=== PATIENT | male | born 1990 | race Caucasian/White ===

== ENCOUNTER 2020-02-12 11:09 | Emergency (ER) | payer OTHER, SELFPAY ==
[2020-02-12 11:20] VITALS: BP 143/100; PULSE 73; RESP 17; TEMP 36.3; O2SAT 100
--- NOTE | 2020-02-12 11:35 | ED.ABDPAIN ---
HPI - Abdominal Pain General Chief Complaint: Abdominal Pain Stated Complaint: abd pains/nausea Time Seen by Provider: 02/12/20 11:21 Source: patient Mode of arrival: ambulatory Limitations: no limitations History of Present Illness HPI narrative: Patient is a 30-year-old male who presents with acute onset of loose stools with nausea but was able to not vomit patient notes generalized cramping and pain to the abdomen with chills fatigue and weakness patient denies similar occurrence or other complaints has not taken anything for his symptoms Related Data Allergies Allergy/AdvReac Type Severity Reaction Status Date / Time Sulfa (Sulfonamide Allergy Unknown Unknown Verified 02/12/20 11:25 Antibiotics) montelukast AdvReac Intermediate anger Verified 02/12/20 11:25 control Review of Systems Review of Systems: All systems reviewed & are unremarkable except as noted in HPI and below PMFSH Past Medical History Medical History Generalized anxiety disorder with panic attacks Raynaud phenomenon RLS (restless legs syndrome) Vasomotor rhinitis Surgical History Surgical History H/O arthroscopy of shoulder (~2012) History of cholecystectomy (~2013) Social History Social History Smoking status: Never smoker Alcohol intake: current Gender identity (if verbalized by the patient): Male Exam Narrative: Exam Narrative: GENERAL: Well-appearing, well-nourished, and in no acute distress. HEAD: Normocephalic, atraumatic. EYES: PERRLA and EOMI. ENT: Nares clear, no rhinorrhea or epistaxis. Mucous membranes moist. CHEST: Clear to auscultation. No respiratory distress. No wheezes rales or rhonchi HEART: Regular rate and rhythm. No murmur heard. Normal peripheral pulses. ABDOMEN: Soft, generalized tenderness of the abdomen, nondistended EXTREMITIES: Normal range of motion. No edema. SKIN: Warm, dry, no rash. NEURO: No focal deficits. Alert and oriented x3. PSYCH: Normal mood and affect. Course Course Emergency Course: Patient in the room at this time in no distress had marked improvement with medications tolerating p.o. intake notes only mild discomfort in the left lower quadrant with remainder of abdomen nontender on exam patient felt appropriate for outpatient reevaluation provided with reasons to return and felt appropriate for outpatient reevaluation Vital Signs Vital signs: Vital Signs Temperature 97.4 F L 02/12/20 11:20 Pulse Rate 73 02/12/20 11:20 Respiratory Rate 17 02/12/20 11:20 Blood Pressure 143/100 H 02/12/20 11:20 Pulse Oximetry 100 02/12/20 11:20 Temperature 97.4 F L 02/12/20 11:20 Pulse Rate 88 02/12/20 13:03 Respiratory Rate 18 02/12/20 13:03 Blood Pressure 136/84 02/12/20 13:03 Pulse Oximetry 98 02/12/20 13:03 MDM - Abdominal Pain MDM Narrative Medical decision making narrative: Patient was nausea diarrhea with improvement in the emergency department felt appropriate for outpatient reevaluation given reasons to return and agrees to do so if symptoms worsen had marked improvement with medication Differential Diagnosis Differential diagnosis: Likely abdominal pain, calculus of kidney, constipation, diverticulitis, gastroenteritis and small bowel obstruction Lab Data Result diagrams: 02/12/20 11:29 02/12/20 11:29 Labs: Lab Results 02/12/20 02/12/20 02/12/20 Range/Units 11:29 11:29 11:29 WBC 7.3 (4.5-10.0) K/mm3 RBC 6.21 H (4.6-6.20) M/mm3 Hgb 19.0 H (14.0-18.0) g/dL Hct 54.9 H (42.0-52.0) % MCV 88.4 (80-100) fl MCH 30.6 (26-34) pg MCHC 34.6 (32-36) g/dl RDW 12.5 (11.5-14.5) % Plt Count 214 (150-375) k/mm3 MPV 10.7 H (7.4-10.4) fl Immature Gran % (Auto) 0.3 (0-0.5) % Neut % (Auto) 63.5 (45.5-73.1) %
[2020-02-12 11:38] LABS: Basophils Percent Auto 0.4 % (0.2-1.2); Eosinophils Absolute Auto 0.1 K/mm3 (0-0.3); Eosinophils Percent Auto 1.9 % (0-4.4); Hematocrit 54.9 % (42.0-52.0); Immature Granulocyte Absolute 0.02 K/mm3 (0.00-0.031); Immature Granulocyte Percent A 0.3 % (0-0.5); Lymphocytes Absolute Auto 2.02 K/mm3 (0.9-3.2); Lymphocytes Percent Auto 27.8 % (18.3-44.2); Mean Corpuscular HGB Conc 34.6 g/dl (32-36); Mean Corpuscular Hemoglobin 30.6 pg (26-34); Mean Corpuscular Volume 88.4 fl (80-100); Mean Platelet Volume 10.7 fl (7.4-10.4); Monocytes Absolute Auto 0.4 K/mm3 (0.1-0.6); Monocytes Percent Auto 6.1 % (2.6-8.5); Neutrophils Absolute Auto 4.6 K/mm3 (1.3-6.7); Neutrophils Percent Auto 63.5 % (45.5-73.1); Platelet Count Result 214 k/mm3 (150-375); Red Blood Count 6.21 M/mm3 (4.6-6.20); Red Cell Distribution Width 12.5 % (11.5-14.5); White Blood Count 7.3 K/mm3 (4.5-10.0)
[2020-02-12] MEDS: ONDANSETRON INJ 4 MG/2 ML VIAL IV PUSH (11:41)
[2020-02-12] MEDS: HYOSCYAMINE SULFATE 0.125 MG TABLET PO (11:42)
[2020-02-12] MEDS: LACTATED RINGERS 1,000 ML 999 ML IV CONT (11:42)
[2020-02-12] MEDS: FAMOTIDINE 20 MG/2 ML VIAL IV PUSH (11:45)
[2020-02-12 11:46] VITALS: BP 128/86; PULSE 66; RESP 20; O2SAT 98
[2020-02-12 11:47] LABS: Add Urine Microscopic? NO; Appearance Urine Clear (Clear); Bilirubin Urine Negative (Negative); Blood Urine Negative (Negative); Color Urine Yellow (Yellow); Glucose Urine UA Negative (Negative); Ketones Urine Negative (Negative); Leukocyte Esterase Ur Negative LEU/UL (Negative); Nitrate Urine Negative (Negative); Protein Urine Negative (Negative); Specific Grav Ur 1.021 (1.001-1.035); Urobilinogen Urine Negative mg/dL (<2.0)
[2020-02-12 11:48] LABS: Alanine Aminotransferase 39 U/L (4-50); Albumin Level 4.8 g/dL (3.5-5.1); Alkaline Phosphatase 66 U/L (38-126); Anion Gap 10 mmol/L (8-16); Aspartate Amino Transferase 56 U/L (17-59); Bilirubin,Total 0.6 mg/dL (0.2-1.3); Blood Urea Nitrogen 17 mg/dL (9-20); Calcium 9.4 mg/dL (8.4-10.2); Carbon Dioxide 34 mmol/L (22-30); Chloride 99 mmol/L (98-107); Estimated CRCL calculation 110 ml/min; Estimated Glomerular Filt Rate > 60; Glucose 111 mg/dL (75-110); Lipase 66 U/L (23-300); Potassium 4.3 mmol/L (3.4-5.0); Sodium 143 mmol/L (137-145)
[2020-02-12 13:03] VITALS: BP 136/84; PULSE 88; RESP 18; O2SAT 98
== END 2020-02-12 14:06 | disposition home or self-care (01) ==
PROVIDERS: Emergency Medicine Emergency Medical Services; Emergency Provider Emergency Medicine; PCP Family Medicine
DX: R10.84 Generalized abdominal pain (principal); G25.81 Restless legs syndrome; I73.00 Raynaud's syndrome without gangrene
CPT/HCPCS: 36415; 80053; 81003; 83690; 85025; 96365; 96375; 99284; A9270; J0131; J2405; J7120